=== PATIENT | male | born 1940 | race Caucasian/White ===

== ENCOUNTER → 2017-05-04 | Outpatient (CLI) | payer MEDICARE ==
[~2017-05-04] MED LIST: ASPI81CH PO; ATOR40TA PO; LISI5 PO; METO100ER PO; NITR.6SL SL; XARELTO20 MG PO
[2017-05-04 12:58] LABS: BASOPHILS ABSOLUTE AUTO 0.05 K/mm3 (0.00-0.23); BASOPHILS PERCENT AUTO 1 % (0-2); EOSINOPHILS ABSOLUTE AUTO 0.11 K/mm3 (0.00-0.68); EOSINOPHILS PERCENT AUTO 1 % (0-6); Hematocrit 42.5 % (37.0-53.0); Hemoglobin 14.2 g/dL (13.5-17.5); IMMATURE GRAN ABSOLUTE AUTO 0.02 K/mm3 (0.00-0.10); IMMATURE GRAN PERCENT AUTO 0 % (0-1); LYMPHOCYTES PERCENT AUTO 15 % (21-46); MONOCYTES ABSOLUTE AUTO 1.21 K/mm3 (0.16-1.47); MONOCYTES PERCENT AUTO 12 % (4-13); Mean Corpuscular HGB 32.4 pg (26.0-34.0); Mean Corpuscular HGB Conc 33.4 g/dL (31.5-36.5); Mean Corpuscular Volume 97 fL (80-100); Mean Platelet Volume 9.3 fL (9.1-12.4); NEUTROPHILS ABSOLUTE AUTO 7.19 K/mm3 (1.96-9.15); NEUTROPHILS PERCENT AUTO 71 % (41-73); Platelet Count 154 K/mm3 (150-400); RDW Coefficient Variation 12.2 % (11.7-14.2); RDW Standard Deviation 43.6 fL (35.1-46.3); Red Blood Cell Count 4.38 M/mm3 (4.30-5.90); White Blood Cell Count 10.08 K/mm3 (4.00-11.30)
[2017-05-04 13:12] LABS: Anion Gap 7 mmol/L (6-16); Blood Urea Nitrogen 20 mg/dL (8-24); Bun/Creatinine Ratio 17.9 (12.0-20.0); CO2, Blood 29 mmol/L (21-32); Calcium, Blood 9.4 mg/dL (8.5-10.1); Chloride, Blood 102 mmol/L (98-108); Creatinine, Blood 1.12 mg/dL (0.60-1.20); Glomerular Filtration Rate >60 (60-); Glucose, Blood 102 mg/dL (70-99); Potassium, Blood 4.4 mmol/L (3.5-5.5); Sodium, Blood 138 mmol/L (136-145)
[2017-05-04 13:13] LABS: Troponin I <0.017 ng/mL (0.000-0.040)
== END ==
LOC: LAB 12:55
PROVIDERS: Physician Assistant Surgical
DX: R06.00 Dyspnea, unspecified (principal)
CPT/HCPCS: 80048; 84484; 85025

== ENCOUNTER 2017-05-10 16:26 | Emergency (ER) | payer MEDICARE ==
[~2017-05-10] VITALS: Ht 185.4 cm; Wt 84.1 kg
[~2017-05-10 16:26] MED LIST changes: -XARELTO20 MG PO
[2017-05-10] MEDS ORDERED: XARELTO20 MG PO (17:41)
== END 2017-05-10 17:47 | disposition home or self-care (01) ==
LOC: ER 16:26
DX: I26.99 Other pulmonary embolism without acute cor pulmonale (principal); Z79.82 Long term (current) use of aspirin; Z95.1 Presence of aortocoronary bypass graft
CPT/HCPCS: 71260; 80048; 93005; 93010; 99284; Q9967

== ENCOUNTER → 2017-05-10 | Outpatient (CLI) | payer MEDICARE ==
[2017-05-10 15:10] LABS: Anion Gap 7 mmol/L (6-16); Blood Urea Nitrogen 23 mg/dL (8-24); Bun/Creatinine Ratio 22.1 (12.0-20.0); CO2, Blood 28 mmol/L (21-32); Calcium, Blood 8.9 mg/dL (8.5-10.1); Chloride, Blood 103 mmol/L (98-108); Creatinine, Blood 1.04 mg/dL (0.60-1.20); Glomerular Filtration Rate >60 (60-); Glucose, Blood 100 mg/dL (70-99); Potassium, Blood 4.3 mmol/L (3.5-5.5); Sodium, Blood 138 mmol/L (136-145)
== END ==
LOC: LAB EV 14:59
PROVIDERS: Family Medicine
DX: R07.89 Other chest pain (principal)
CPT/HCPCS: 80048

== ENCOUNTER → 2017-12-09 | Outpatient (CLI) | payer MEDICARE ==
[~2017-12-09] MED LIST changes: +XARELTO20 MG PO
== END | disposition home or self-care (01) ==
LOC: LAB SHORT 18:22 → LAB EV 18:22
DX: L08.9 Local infection of the skin and subcutaneous tissue, unspecified (principal)
CPT/HCPCS: 87070; 87077; 87147; 87186; 87205

== ENCOUNTER → 2018-05-13 | Outpatient (CLI) | payer MEDICARE ==
[2018-05-13 15:24] LABS: BASOPHILS ABSOLUTE AUTO 0.05 K/mm3 (0.00-0.23); BASOPHILS PERCENT AUTO 1 % (0-2); EOSINOPHILS PERCENT AUTO 2 % (0-6); Hematocrit 41.9 % (37.0-53.0); Hemoglobin 14.1 g/dL (13.5-17.5); IMMATURE GRAN ABSOLUTE AUTO 0.02 K/mm3 (0.00-0.10); IMMATURE GRAN PERCENT AUTO 0 % (0-1); LYMPHOCYTES ABSOLUTE AUTO 1.47 K/mm3 (0.84-5.20); LYMPHOCYTES PERCENT AUTO 23 % (21-46); MONOCYTES ABSOLUTE AUTO 0.86 K/mm3 (0.16-1.47); MONOCYTES PERCENT AUTO 14 % (4-13); Mean Corpuscular HGB 32.6 pg (26.0-34.0); Mean Corpuscular HGB Conc 33.7 g/dL (31.5-36.5); Mean Corpuscular Volume 97 fL (80-100); NEUTROPHILS ABSOLUTE AUTO 3.78 K/mm3 (1.96-9.15); NEUTROPHILS PERCENT AUTO 60 % (41-73); Platelet Count 172 K/mm3 (150-400); RDW Coefficient Variation 12.2 % (11.7-14.2); RDW Standard Deviation 43.9 fL (35.1-46.3); Red Blood Cell Count 4.32 M/mm3 (4.30-5.90); White Blood Cell Count 6.28 K/mm3 (4.00-11.30)
[2018-05-13 15:36] LABS: Alanine Aminotransfer (ALT/SGP 16 U/L (12-78); Albumin, Blood 3.4 g/dL (3.4-5.0); Albumin/Globulin Ratio 0.9 (0.8-1.8); Alk Phos 65 U/L (40-126); Anion Gap 7 mmol/L (6-16); Aspartate Aminotrans (AST/SGOT 15 U/L (12-37); Bilirubin, Total 1.1 mg/dL (0.1-1.0); Blood Urea Nitrogen 27 mg/dL (8-24); Bun/Creatinine Ratio 23.7 (12.0-20.0); CO2, Blood 31 mmol/L (21-32); Calcium, Blood 9.3 mg/dL (8.5-10.1); Chloride, Blood 102 mmol/L (98-108); Creatinine, Blood 1.14 mg/dL (0.60-1.20); Globulin, Blood 3.7 g/dL (2.2-4.0); Glomerular Filtration Rate >60 (60-); Glucose, Blood 116 mg/dL (70-99); Potassium, Blood 4.1 mmol/L (3.5-5.5); Sodium, Blood 140 mmol/L (136-145); Total Protein, Blood 7.1 g/dL (6.4-8.2)
== END | disposition home or self-care (01) ==
LOC: LAB EV 15:20 → LAB SHORT 15:20
PROVIDERS: General Practice
DX: M54.5 Low back pain (principal)
CPT/HCPCS: 80053; 85025; 85651

== ENCOUNTER → 2018-10-17 | Outpatient (CLI) | payer MEDICARE | END | disposition home or self-care (01) | LOC: LAB SHORT 07:26 → PLD 07:26 | DX: D23.0 Other benign neoplasm of skin of lip (principal) | CPT/HCPCS: 88305 ==

== ENCOUNTER → 2019-01-24 | Outpatient (CLI) | payer MEDICARE ==
[2019-01-24 20:02] LABS: Adenovirus F 40/41 Not Detected (NOT DETECT); Astrovirus Not Detected (NOT DETECT); Campylobacter Sp Not Detected (NOT DETECT); Cryptosporidium Not Detected (NOT DETECT); Cyclospora Cayetanensis Not Detected (NOT DETECT); E. Coli O157 Not Detected (NOT DETECT); Entamoeba Histolytica Not Detected (NOT DETECT); Enteroaggregative E. coli-EAEC Not Detected (NOT DETECT); Enteropathogenic E. coli-EPEC Not Detected (NOT DETECT); Enterotoxigenic E. coli-ETEC Not Detected (NOT DETECT); Giardia Lamblia Not Detected (NOT DETECT); Norovirus GI/GII Not Detected (NOT DETECT); Plesiomonas Shigelloides Not Detected (NOT DETECT); Rotavirus A Not Detected (NOT DETECT); Salmonella Sp Not Detected (NOT DETECT); Sapovirus Not Detected (NOT DETECT); Shiga Toxin-prod E. coli-STEC Not Detected (NOT DETECT); Shigella/Enteroin E. coli-EIEC Not Detected (NOT DETECT); Vibrio Cholerae Not Detected (NOT DETECT); Vibrio Sp Not Detected (NOT DETECT); Yersinia Enterocolitica Not Detected (NOT DETECT)
== END | disposition home or self-care (01) ==
LOC: LAB EV 07:30
PROVIDERS: Nurse Practitioner
DX: R19.7 Diarrhea, unspecified (principal)
CPT/HCPCS: 0097U; 87324

== ENCOUNTER → 2019-04-11 | Outpatient (CLI) | payer MEDICARE ==
[2019-04-11 22:38] LABS: Adenovirus F 40/41 Not Detected (NOT DETECT); Astrovirus Not Detected (NOT DETECT); Campylobacter Sp Not Detected (NOT DETECT); Cryptosporidium Not Detected (NOT DETECT); Cyclospora Cayetanensis Not Detected (NOT DETECT); E. Coli O157 Not Detected (NOT DETECT); Entamoeba Histolytica Not Detected (NOT DETECT); Enteroaggregative E. coli-EAEC Not Detected (NOT DETECT); Enteropathogenic E. coli-EPEC Not Detected (NOT DETECT); Enterotoxigenic E. coli-ETEC Not Detected (NOT DETECT); Giardia Lamblia Not Detected (NOT DETECT); Norovirus GI/GII Not Detected (NOT DETECT); Plesiomonas Shigelloides Not Detected (NOT DETECT); Rotavirus A Not Detected (NOT DETECT); Salmonella Sp Not Detected (NOT DETECT); Sapovirus Not Detected (NOT DETECT); Shiga Toxin-prod E. coli-STEC Not Detected (NOT DETECT); Shigella/Enteroin E. coli-EIEC Not Detected (NOT DETECT); Vibrio Cholerae Not Detected (NOT DETECT); Vibrio Sp Not Detected (NOT DETECT); Yersinia Enterocolitica Not Detected (NOT DETECT)
== END ==
LOC: LAB SHORT 16:53 → OLS 16:53 → LAB FUT 04-11 12:15
PROVIDERS: Physician Assistant Medical
DX: R19.7 Diarrhea, unspecified (principal)
CPT/HCPCS: 0097U; 87324

== ENCOUNTER 2020-09-01 10:55 | Emergency (ER) | payer MEDICARE ==
[~2020-09-01] VITALS: Ht 182.9 cm; Wt 79.4 kg
== END 2020-09-01 15:40 | disposition home or self-care (01) ==
LOC: ER 10:55
DX: R10.10 Upper abdominal pain, unspecified (principal)
CPT/HCPCS: 99283

== ENCOUNTER 2021-01-24 05:24 | Emergency (ER) | payer MEDICARE ==
[~2021-01-24] VITALS: Ht 182.9 cm; Wt 79.4 kg
[2021-01-24 06:08] LABS: BASOPHILS ABSOLUTE AUTO 0.06 K/mm3 (0.00-0.23); BASOPHILS PERCENT AUTO 1 % (0-2); EOSINOPHILS ABSOLUTE AUTO 0.21 K/mm3 (0.00-0.68); EOSINOPHILS PERCENT AUTO 3 % (0-6); Hematocrit 40.2 % (37.0-53.0); Hemoglobin 13.5 g/dL (13.5-17.5); IMMATURE GRAN ABSOLUTE AUTO 0.02 K/mm3 (0.00-0.10); IMMATURE GRAN PERCENT AUTO 0 % (0-1); LYMPHOCYTES ABSOLUTE AUTO 1.29 K/mm3 (0.84-5.20); LYMPHOCYTES PERCENT AUTO 17 % (21-46); MONOCYTES ABSOLUTE AUTO 0.75 K/mm3 (0.16-1.47); MONOCYTES PERCENT AUTO 10 % (4-13); Mean Corpuscular HGB 33.4 pg (26.0-34.0); Mean Corpuscular HGB Conc 33.6 g/dL (31.5-36.5); Mean Corpuscular Volume 100 fL (80-100); Mean Platelet Volume 9.4 fL (9.1-12.4); NEUTROPHILS ABSOLUTE AUTO 5.17 K/mm3 (1.96-9.15); NEUTROPHILS PERCENT AUTO 69 % (41-73); Platelet Count 189 K/mm3 (150-400); RDW Coefficient Variation 11.9 % (11.7-14.2); RDW Standard Deviation 43.2 fL (35.1-46.3); Red Blood Cell Count 4.04 M/mm3 (4.30-5.90)
[2021-01-24 06:42] LABS: Alanine Aminotransfer (ALT/SGP 50 U/L (12-78); Albumin, Blood 3.4 g/dL (3.4-5.0); Alk Phos 77 U/L (50-136); Anion Gap 5 mmol/L (6-16); Aspartate Aminotrans (AST/SGOT 91 U/L (12-37); Bilirubin, Total 1.1 mg/dL (0.1-1.0); Blood Urea Nitrogen 30 mg/dL (8-24); Bun/Creatinine Ratio 19.6 (12.0-20.0); CO2, Blood 29 mmol/L (21-32); Calcium, Blood 9.2 mg/dL (8.5-10.1); Chloride, Blood 109 mmol/L (98-108); Creatinine, Blood 1.53 mg/dL (0.60-1.20); Globulin, Blood 3.3 g/dL (2.2-4.0); Glomerular Filtration Rate 44 (60-); Glucose, Blood 102 mg/dL (70-99); Potassium, Blood 4.2 mmol/L (3.5-5.5); Sodium, Blood 143 mmol/L (136-145); Total Protein, Blood 6.7 g/dL (6.4-8.2); Troponin I <0.015 ng/mL (0.000-0.040)
== END 2021-01-24 09:08 | disposition home or self-care (01) ==
LOC: ER 05:24
PROVIDERS: Emergency Medicine
DX: R10.13 Epigastric pain (principal)
CPT/HCPCS: 36415; 71045; 80053; 83690; 84484; 85025; 93005; 93010; 99284-25

== ENCOUNTER 2021-04-29 10:17 | Emergency (ER) | payer MEDICARE ==
[~2021-04-29] VITALS: Ht 182.9 cm; Wt 83.9 kg
[~2021-04-29 10:17] MED LIST changes: -ASPI81CH PO; +Aspir 8181 MG PO
[2021-04-29] MEDS ORDERED: XARELTO20 M1 PO (10:59)
[2021-04-29] MEDS ORDERED: FINA5 PO (11:00)
[2021-04-29] MEDS ORDERED: METO50ER PO (11:00)
[2021-04-29] MEDS ORDERED: HYDR1TAB94 PO (12:49)
== END 2021-04-29 12:55 | disposition home or self-care (01) ==
LOC: ER 10:17
DX: S63.501A Unspecified sprain of right wrist, initial encounter (principal); R50.9 Fever, unspecified; W18.30XA Fall on same level, unspecified, initial encounter; Z79.82 Long term (current) use of aspirin; Z79.899 Other long term (current) drug therapy
CPT/HCPCS: 71045; 73110; 99283-25; A9270

== ENCOUNTER 2021-05-04 12:33 | Inpatient (IN) | payer MEDICARE ==
[~2021-05-04] VITALS: Wt 80.3 kg
[2021-05-04 14:53] LABS: Albumin, Blood 2.5 g/dL (3.4-5.0); Albumin/Globulin Ratio 0.7 (0.8-1.8); Bilirubin, Total 0.8 mg/dL (0.1-1.0); Bun/Creatinine Ratio 27.4 (12.0-20.0); C-REACTIVE PROTEIN, EXT RANGE 15.5 mg/dL (0.000-0.300); Calcium, Blood 9.2 mg/dL (8.5-10.1); Creatinine, Blood 3.79 mg/dL (0.60-1.20); Globulin, Blood 3.8 g/dL (2.2-4.0); Potassium, Blood 3.7 mmol/L (3.5-5.5); Total Protein, Blood 6.3 g/dL (6.4-8.2)
--- NOTE | 2021-05-04 15:39 | NUR ---
SHIFT SUMMARY 1300 RECEIVED PT TO 326 DIRECT ADMIT FROM [place]. PT IS A&O AND ABLE TO BE INDEPENDENT IN AND TO BTHR. CALLS FOR ASSIST NEEDED. PT ADMITTED FOR RH CELLULITIS AND SWELLING. LAB TO AFTER ADMISSION TO OBTAIN SET OF BCX'S AND LABS, PER ORDERS. PT BECOMING VERY ANXIOUS AND STIFF, NOT ALLOW LAB TO DRAW AT THAT TIME. LAB LATER RETURNED AFTER BLANKETS AND FOOD GIVEN. PT A LITTLE CALMER AND LAB WAS ABLE TO OBTAIN NEEDED BLOOD. PT UP INDEPENDENTLY TO BTHRM AND THEN BACK TO BED FOR A BREIF NAP. IMAGING NOTIFIED THAT LABS WERE COMPLETE AND PT HAD WORKING IV SITE FOR CT ORDERS. IV ABX GIVEN PER EMAR. PT TALKING TO ON PHONE AND NOW WAITING FOR CT. RH ELEVATED ON PILLOW. PT REPORTS SWELLING DOWN SOME SINCE ADMISSION AND AFTER ELEVATING. CALL LT IN REACH, ABLE TO MAKE NEEDS KNOWN.
[2021-05-04] MEDS ORDERED: FINA5 PO (20:53)
--- NOTE | 2021-05-05 04:37 | NUR ---
SHIFT SUMMARY PT RESTING WELL THIS SHIFT. A/O X4. STAND BY ASSIST TO BATHROOM. PT REPORTING THAT TYLENOL IS HELPING WITH THE PAIN IN HIS R ARM. TOLERATING PO INTAKE. VOIDING AND PASSING STOOL. VITAL SIGNS STABLE. WILL CONTINUE TO MONITOR AND REPORT TO ONCOMING RN.
[2021-05-05 05:44] LABS: BASOPHILS ABSOLUTE AUTO 0.02 K/mm3 (0.00-0.23); BASOPHILS PERCENT AUTO 0 % (0-2); EOSINOPHILS ABSOLUTE AUTO 0.03 K/mm3 (0.00-0.68); EOSINOPHILS PERCENT AUTO 0 % (0-6); Hemoglobin 10.7 g/dL (13.5-17.5); IMMATURE GRAN ABSOLUTE AUTO 0.06 K/mm3 (0.00-0.10); IMMATURE GRAN PERCENT AUTO 1 % (0-1); LYMPHOCYTES ABSOLUTE AUTO 0.98 K/mm3 (0.84-5.20); LYMPHOCYTES PERCENT AUTO 8 % (21-46); MONOCYTES ABSOLUTE AUTO 1.05 K/mm3 (0.16-1.47); MONOCYTES PERCENT AUTO 8 % (4-13); Mean Corpuscular HGB 31.1 pg (26.0-34.0); Mean Corpuscular HGB Conc 33.4 g/dL (31.5-36.5); Mean Corpuscular Volume 93 fL (80-100); NEUTROPHILS ABSOLUTE AUTO 10.76 K/mm3 (1.96-9.15); NEUTROPHILS PERCENT AUTO 83 % (41-73); Platelet Count 274 K/mm3 (150-400); RDW Coefficient Variation 13.1 % (11.7-14.2); RDW Standard Deviation 44.8 fL (35.1-46.3); Red Blood Cell Count 3.44 M/mm3 (4.30-5.90)
[2021-05-05 06:00] LABS: Bun/Creatinine Ratio 27.5 (12.0-20.0); Calcium, Blood 8.4 mg/dL (8.5-10.1); Potassium, Blood 3.4 mmol/L (3.5-5.5)
[2021-05-05 12:38] LABS: Source, Urine Foley catheter
[2021-05-05 12:40] LABS: Bilirubin, Urine Neg (Neg); Blood, Urine 4+ (Neg); Glucose Qualitative, Urine Neg (Neg); Ketones, Urine Neg (Neg); Leukocyte Esterase, Urine Neg (Neg); Nitrite, Urine Neg (Neg); Protein, Urine Neg (Neg); Specific Gravity, Urine 1.015 (1.003-1.022); Urobilinogen, Urine NORM (Normal)
[2021-05-05 12:47] LABS: Appearance, Urine Clear (Clear); Color, Urine Pale Yellow (P-Yellow)
[2021-05-05 12:49] LABS: Bacteria Not Seen /hpf; Mucus Light (0-Heavy); Squamous Epithelial Cells Rare /hpf (Few)
--- NOTE | 2021-05-05 15:06 | NUR ---
SHIFT SUMMARY PT AWAKE AT START OF SHIFT, RESTING QUIETLY AND KEEPING L ARM STRAIGHT FOR IVF INFUSING. R ARM REMAINED ELEVATED ON PILLOW, WHICH IMPROVED SOME FROM LAST NIGHT. SWELLING DECREASED, SHOWING SOME WRINKLED SKIN ON HAND WELL COLOR RETURNED TO FINGERS. YESTERDAY UPON ADMISSION, PT'S FINGERS ON RH WERE WHITE FROM DECREASED CIRCULATION, WITH INTENSE REDNESS TO BACK OF HAND FROM SWELLING. DR GUEVARA TO EARLY TO TALK WITH PT AND DISCUSS PLAN OF CARE. LABS SHOWING ARF D/T URINARY RETENSION. DR GUEVARA RECOMMENDED NOBLE CATH TO BE PLACED AND LEFT IN, UNTIL PT COULD SEE OUTPT UROLOGY. PT AGREED TO NOBLE CATH AND REPORTED URINARY RETENSION HAD GOTTEN WORSE IN RECENT DAYS. IVF'S STOPPED, PT SL AND THEN ABLE TO EAT BREAKFAST W/O IV PUMP OCCLUSSION. PT REQUESTED SHOWER AFTER BREAKFAST AND BEFORE NOBLE PLACEMENT. PT ASSISTED WITH SHOWER BY TUNNEL ELASTIC OPERATOR LOCKSTITCH. LINENS CHANGED WELL. NOBLE CATH PLACED BY MARCELINO STUDENT WITH THIS RN AND INSTRUCTOR AT . PT AGREEABLE TO MARCELINO STUDENT PLACING NOBLE, AND TOLERATED WELL; SIGNIFICANT OUTPT ONCE NOBLE PLACED. PT RESTING QUIETLY AT THIS TIME. DENIES FURTHER NEEDS PRESENTLY. CALL LT IN REACH.
--- NOTE | 2021-05-05 23:38 | NUR ---
SHIFT SUMMARY: PT IS A/OX4. AIDE IS PATENT AND OUTPUT IS ADRIENNE/CLEAR. PT STATES RT ARM/HAND FEELS LESS SWOLLEN. NO ACUTES CHANGES TO REPORT. WE'LL CONTINUE TO MONITOR DURING THE NOC SHIFT.
[2021-05-06 06:43] LABS: BASOPHILS ABSOLUTE AUTO 0.02 K/mm3 (0.00-0.23); BASOPHILS PERCENT AUTO 0 % (0-2); EOSINOPHILS ABSOLUTE AUTO 0.11 K/mm3 (0.00-0.68); EOSINOPHILS PERCENT AUTO 1 % (0-6); Hematocrit 34.2 % (37.0-53.0); Hemoglobin 11.8 g/dL (13.5-17.5); IMMATURE GRAN ABSOLUTE AUTO 0.07 K/mm3 (0.00-0.10); IMMATURE GRAN PERCENT AUTO 1 % (0-1); LYMPHOCYTES ABSOLUTE AUTO 1.16 K/mm3 (0.84-5.20); LYMPHOCYTES PERCENT AUTO 10 % (21-46); MONOCYTES ABSOLUTE AUTO 1.02 K/mm3 (0.16-1.47); MONOCYTES PERCENT AUTO 9 % (4-13); Mean Corpuscular HGB 31.8 pg (26.0-34.0); Mean Corpuscular HGB Conc 34.5 g/dL (31.5-36.5); Mean Corpuscular Volume 92 fL (80-100); Mean Platelet Volume 9.8 fL (9.1-12.4); NEUTROPHILS ABSOLUTE AUTO 9.43 K/mm3 (1.96-9.15); NEUTROPHILS PERCENT AUTO 80 % (41-73); Platelet Count 351 K/mm3 (150-400); RDW Coefficient Variation 13.1 % (11.7-14.2); RDW Standard Deviation 44.2 fL (35.1-46.3); Red Blood Cell Count 3.71 M/mm3 (4.30-5.90); White Blood Cell Count 11.81 K/mm3 (4.00-11.30)
[2021-05-06 07:14] LABS: Anion Gap 10 mmol/L (6-16); Blood Urea Nitrogen 83 mg/dL (8-24); Bun/Creatinine Ratio 34.7 (12.0-20.0); CO2, Blood 22 mmol/L (21-32); Calcium, Blood 8.7 mg/dL (8.5-10.1); Chloride, Blood 106 mmol/L (98-108); Creatinine, Blood 2.39 mg/dL (0.60-1.20); Glomerular Filtration Rate 26 (60-); Glucose, Blood 113 mg/dL (70-99); Phosphorus, Blood 3.9 mg/dL (2.5-4.9); Potassium, Blood 3.5 mmol/L (3.5-5.5); Sodium, Blood 138 mmol/L (136-145)
--- NOTE | 2021-05-06 10:15 | NUR ---
Per Dr. Ramsey, patient needs a close follow-up scheduled with [facility]. I called this morning and scheduled the patient for a stat office visit on Thursday, May 13, 2021 at 09:30am at the [place] location.
--- NOTE | 2021-05-06 16:54 | NUR ---
Pt. was alert in bed and wlecomed my visit. After establishing rapport pt. was initially unsettled by the care he received in ED, but verbalized the excellent care he was receiving in the Medical floor. Listened empathetically. Pt. displayed evidence of needing conversation. Explored issues of orestes and belief. Prayed with Pt. Pt. displayed evidence of encouragement and verbalized gratitude for the spiritual care visit.
--- NOTE | 2021-05-06 18:29 | NUR ---
SHIFT SUMMARY- PT HAS HAD NO ACUTE CHANGES T/O THE SHIFT, HE WORKED WITH PT AND OT TODAY. PT HAD A FULL SHOWER. RIGHT HAND IS STILL SWOLLEN BUT APPEARS TO BE IMPROVED, PAIN IS WELL MANAGED WITH TYLENOL. PT CONVEYED THE CONCERN THAT HE MAY BECOME CONSTIPATED, THIS IS APPARENTLY A COMMON PROBLEM FOR HIM AT HOME. PT REQUESTED SOME BOWEL CARE MEDICATIONS HE HAS NOT HAD A BM SINCE TUESDAY. WILL PASS ON TO NIGHT RN SO SHE CAN PASS THE REQUEST ON TO THE DAY SHIFT RN TO REQUEST ON NEXT DOCTOR ROUNDS. PLACED A NOTE ON PT DRY ERASE BOARD IN PT ROOM PER PT REQUEST.
--- NOTE | 2021-05-07 03:33 | NUR ---
PT IS A/OX4. HIS IS ON RA W/ NO TELE. HIS NOBLE CATHETER IS PATENT/OUTPUT IS YELLOW AND CLEAR. HE WILL BE DISCHARGING W/ THE NOBLE AND F/U AN OUTPATIENT. HIS RT HAND/FOREARM IS SWOLLEN, RED, AND WARM TO TOUCH. THE 650 MG TYLENOL DECREASES THE PT'S PAIN VERY WELL. NO OTHER C/O THIS NOC SHIFT.
[2021-05-07 05:06] LABS: BASOPHILS ABSOLUTE AUTO 0.03 K/mm3 (0.00-0.23); BASOPHILS PERCENT AUTO 0 % (0-2); EOSINOPHILS ABSOLUTE AUTO 0.15 K/mm3 (0.00-0.68); EOSINOPHILS PERCENT AUTO 1 % (0-6); Hematocrit 33.6 % (37.0-53.0); Hemoglobin 11.2 g/dL (13.5-17.5); IMMATURE GRAN ABSOLUTE AUTO 0.09 K/mm3 (0.00-0.10); IMMATURE GRAN PERCENT AUTO 1 % (0-1); LYMPHOCYTES ABSOLUTE AUTO 1.16 K/mm3 (0.84-5.20); LYMPHOCYTES PERCENT AUTO 11 % (21-46); MONOCYTES ABSOLUTE AUTO 0.96 K/mm3 (0.16-1.47); MONOCYTES PERCENT AUTO 9 % (4-13); Mean Corpuscular HGB 31.4 pg (26.0-34.0); Mean Corpuscular HGB Conc 33.3 g/dL (31.5-36.5); Mean Corpuscular Volume 94 fL (80-100); Mean Platelet Volume 9.7 fL (9.1-12.4); NEUTROPHILS ABSOLUTE AUTO 8.09 K/mm3 (1.96-9.15); NEUTROPHILS PERCENT AUTO 77 % (41-73); Platelet Count 351 K/mm3 (150-400); RDW Coefficient Variation 13.1 % (11.7-14.2); RDW Standard Deviation 45.1 fL (35.1-46.3); Red Blood Cell Count 3.57 M/mm3 (4.30-5.90); White Blood Cell Count 10.48 K/mm3 (4.00-11.30)
[2021-05-07 05:29] LABS: Anion Gap 7 mmol/L (6-16); Blood Urea Nitrogen 61 mg/dL (8-24); Bun/Creatinine Ratio 36.5 (12.0-20.0); CO2, Blood 25 mmol/L (21-32); Calcium, Blood 8.6 mg/dL (8.5-10.1); Chloride, Blood 106 mmol/L (98-108); Creatinine, Blood 1.67 mg/dL (0.60-1.20); Glomerular Filtration Rate 40 (60-); Glucose, Blood 108 mg/dL (70-99); Phosphorus, Blood 2.9 mg/dL (2.5-4.9); Potassium, Blood 3.9 mmol/L (3.5-5.5); Sodium, Blood 138 mmol/L (136-145)
[2021-05-07] MEDS ORDERED: CEPH500 PO (10:17)
--- NOTE | 2021-05-07 10:21 | NUR ---
Yesterday I went to visit the patient in his room. He was sitting up in bed, alert and pleasant. He requested I call his , and we both spoke to her to discuss the discharge plan for today. I also asked him for his daughter, Macey, cell phone number [phone]. I called and discussed the discharge plan for today. I also let her know of the appointment with his PCP scheduled for Tuesday at 12:00 and the appointment with [facility] in [place] scheduled for Tuesday at 09:30am. She states she plans to help with discharge transportation and transportation to his appointment on Tuesday. Patient has several friends that would be able to provide transportation to the [place] appointment. I went to visit the patient this morning to ask his preference on home health services, he chose [facility]. I have contacted Liz Patino with [facility] to refer the patient for those services. Consulted with patient's nurse, Ashlie, on discharge plan. All agreeable and deny barriers to returning home.
--- NOTE | 2021-05-07 12:57 | NUR ---
DISCHARGE SUMMARY: PRIOR TO DISCHARGE PT WAS EDUCATED ON MAINTANCE OF NOBLE CATHETER AND NEW ANTIBIOTIC MEDICATION. PATIENT VU AND PROVIDED RETURNED DEMONSTRATION. ASSISTED PATIENT WITH GETTING DRESSED AND PACKING UP BELONGINGS. PT ESCORTED TO POV BY THIS STUDENT RN. PICKED UP BY FAMILY MEMBER.
--- NOTE | 2021-05-08 10:17 | NUR ---
Received referral from [facility] (Sudha Beebe) on 05/07/2021. Patient discharged 05/07/2021 with orders for home health and elected [facility]. Contacted patient at home this morning- 05/08/2021 at number listed on demographic sheet to further discuss the above. Patient is agreeable to the above. Discussed homebound status definition with patient. Patient verbalized understanding. Discussed what home health is vs what it is not (in home caregivers/housekeeping). Patient verbalized understanding. Discussed the next steps in the process of an initial assessment to determine frequency of visits. Again patient verbalized understanding. Offered a chance for patient to ask questions regarding the above of which there were none. Gathered all supporting documentation for referral (face sheet, face to face, med list, H&P, discharge summary, and most recent PT assessment) and sent to [facility] for review. No further interventions required. Liz Patino Referral Liaison
== END 2021-05-07 12:22 | disposition home health service (06) | DRG 603 ==
LOC: MEDS 12:36
PROVIDERS: ADMIT Family Medicine
DX: L03.113 Cellulitis of right upper limb (principal); N17.9 Acute kidney failure, unspecified; D68.59 Other primary thrombophilia; R78.81 Bacteremia; I50.32 Chronic diastolic (congestive) heart failure; N40.0 Benign prostatic hyperplasia without lower urinary tract symptoms; I25.10 Atherosclerotic heart disease of native coronary artery without angina pectoris; I27.20 Pulmonary hypertension, unspecified; Z86.711 Personal history of pulmonary embolism; Z86.718 Personal history of other venous thrombosis and embolism; Z95.1 Presence of aortocoronary bypass graft; Z98.890 Other specified postprocedural states; Z79.899 Other long term (current) drug therapy; Z79.82 Long term (current) use of aspirin; N18.9 Chronic kidney disease, unspecified; B95.5 Unspecified streptococcus as the cause of diseases classified elsewhere
CPT/HCPCS: 36415; 73200; 76770; 80048; 80053; 80069; 81001; 84145; 85025; 85651; 86140; 87040; 87147; 97110; 97161; 97166; 97530; A9270; J0690; J7030

== ENCOUNTER → 2021-05-04 | Outpatient (CLI) | payer MEDICARE ==
[~2021-05-04] MED LIST changes: +FINA5 PO; +HYDR1TAB94 PO; +METO50ER PO; +XARELTO20 M1 PO
[2021-05-04 08:45] LABS: BASOPHILS ABSOLUTE AUTO 0.02 K/mm3 (0.00-0.23); BASOPHILS PERCENT AUTO 0 % (0-2); EOSINOPHILS ABSOLUTE AUTO 0.01 K/mm3 (0.00-0.68); EOSINOPHILS PERCENT AUTO 0 % (0-6); Hematocrit 35.1 % (37.0-53.0); Hemoglobin 12.1 g/dL (13.5-17.5); IMMATURE GRAN ABSOLUTE AUTO 0.05 K/mm3 (0.00-0.10); IMMATURE GRAN PERCENT AUTO 0 % (0-1); LYMPHOCYTES ABSOLUTE AUTO 0.69 K/mm3 (0.84-5.20); LYMPHOCYTES PERCENT AUTO 5 % (21-46); MONOCYTES ABSOLUTE AUTO 1.09 K/mm3 (0.16-1.47); MONOCYTES PERCENT AUTO 8 % (4-13); Mean Corpuscular HGB 32.4 pg (26.0-34.0); Mean Corpuscular HGB Conc 34.5 g/dL (31.5-36.5); Mean Corpuscular Volume 94 fL (80-100); NEUTROPHILS ABSOLUTE AUTO 11.89 K/mm3 (1.96-9.15); NEUTROPHILS PERCENT AUTO 87 % (41-73); Platelet Count 294 K/mm3 (150-400); RDW Coefficient Variation 13.2 % (11.7-14.2); RDW Standard Deviation 45.3 fL (35.1-46.3); Red Blood Cell Count 3.74 M/mm3 (4.30-5.90); White Blood Cell Count 13.75 K/mm3 (4.00-11.30)
== END | disposition home or self-care (01) ==
LOC: LAB SHORT 08:40 → LAB 08:40
PROVIDERS: Physician Assistant
DX: R22.31 Localized swelling, mass and lump, right upper limb (principal)
CPT/HCPCS: 84550; 85025; 85651

== ENCOUNTER 2021-06-01 14:19 | Emergency (ER) | payer MEDICARE ==
[~2021-06-01] VITALS: Ht 182.9 cm; Wt 74.8 kg
[~2021-06-01 14:19] MED LIST changes: +CEPH500 PO
[2021-06-01] MEDS ORDERED: TRAM50 PO (17:04)
[2021-06-01] MEDS ORDERED: CEPH500 PO (17:17)
[2021-06-01] MEDS ORDERED: Bactrim Ds Tab1 EACH PO (17:17)
== END 2021-06-01 17:25 | disposition home or self-care (01) ==
LOC: ER 14:19 → CT 14:19 → EDSTATUS 15:00 → CT 15:00 → ER 17:25
DX: L03.113 Cellulitis of right upper limb (principal); I10 Essential (primary) hypertension; Z79.899 Other long term (current) drug therapy
CPT/HCPCS: 73201; 99283-25; A9270; Q9967

== ENCOUNTER 2021-10-11 12:48 | Inpatient (IN) | payer MEDICARE ==
[~2021-10-11] VITALS: Ht 182.9 cm; Wt 77.6 kg
[~2021-10-11 12:48] MED LIST changes: +Bactrim Ds Tab1 EACH PO; +TRAM50 PO
[2021-10-11 20:32] LABS: BASOPHILS ABSOLUTE AUTO 0.04 K/mm3 (0.00-0.23); BASOPHILS PERCENT AUTO 0 % (0-2); EOSINOPHILS PERCENT AUTO 0 % (0-6); Hematocrit 38.8 % (37.0-53.0); Hemoglobin 13.3 g/dL (13.5-17.5); IMMATURE GRAN ABSOLUTE AUTO 0.03 K/mm3 (0.00-0.10); IMMATURE GRAN PERCENT AUTO 0 % (0-1); LYMPHOCYTES ABSOLUTE AUTO 0.87 K/mm3 (0.84-5.20); LYMPHOCYTES PERCENT AUTO 7 % (21-46); MONOCYTES ABSOLUTE AUTO 0.86 K/mm3 (0.16-1.47); MONOCYTES PERCENT AUTO 6 % (4-13); Mean Corpuscular HGB 32.3 pg (26.0-34.0); Mean Corpuscular HGB Conc 34.3 g/dL (31.5-36.5); Mean Corpuscular Volume 94 fL (80-100); NEUTROPHILS ABSOLUTE AUTO 11.55 K/mm3 (1.96-9.15); NEUTROPHILS PERCENT AUTO 87 % (41-73); Platelet Count 200 K/mm3 (150-400); RDW Standard Deviation 41.7 fL (35.1-46.3); Red Blood Cell Count 4.12 M/mm3 (4.30-5.90); White Blood Cell Count 13.35 K/mm3 (4.00-11.30)
[2021-10-11 20:47] LABS: International Normalized Ratio 1.07; Prothrombin Time Results 11.2 Sec (9.7-11.5)
[2021-10-11 20:53] LABS: Albumin, Blood 3.4 g/dL (3.4-5.0); Albumin/Globulin Ratio 1.2 (0.8-1.8); Bilirubin, Total 1.5 mg/dL (0.1-1.0); Bun/Creatinine Ratio 21.5 (12.0-20.0); Creatinine, Blood 1.21 mg/dL (0.60-1.20); Globulin, Blood 2.9 g/dL (2.2-4.0); Magnesium, Blood 2.1 mg/dL (1.6-2.4); Phosphorus, Blood 3.3 mg/dL (2.5-4.9); Potassium, Blood 4.1 mmol/L (3.5-5.5); Total Protein, Blood 6.3 g/dL (6.4-8.2)
[2021-10-11 22:41] LABS: SARS-Cov-2 (COVID-19) PCR, MMC NEGATIVE (NEGATIVE)
--- NOTE | 2021-10-12 08:07 | NUR ---
ASSUMED CARE OF PT AT 0030. PT WITH HIP FX.L WITH SOME EXTERNAL ROTATION.ON THINNERS BASELINE AND HAS NOT BEEN 24 SINCE LAST DOSE.PT HAS CHRONIC INDWELLING NOBLE WHICH REPORTED PT REFUSING REPLACED. PT ALLOWED ER TO REPLACE DRNG BAG.PT REFUSING FENTANYL.STATES DID NOT LIKE THE WAY IT MADE HIM FEEL.PT TAKING TYLENOL FOR PAIN.
--- NOTE | 2021-10-12 10:35 | NUR ---
PATIENT TO DAY SURGERY VIA BED WITH 2 STAFF
--- NOTE | 2021-10-12 15:15 | NUR ---
PATIENT RETURNED TO ROOM FROM PACU, IN BED. VSS, ON 2L O2 VIA NC. LUNGS CLEAR. BULKY DRESSING IN PLACE TO LEFT HIP, C/D/I. PPOLAR PACK IN PLACE. PATIENT ABLE TO WIGLLE TOES AND HAS FULL SENSATION TO BLE. DENIES PAIN. TELE PLACED AND CONFIRED W/ ROD MILL TENDER JR STEEN @ 73. TOLERATING WATER AND JELLO AT THIS TIME. CALL LIGHT IN REACH.
--- NOTE | 2021-10-12 19:04 | NUR ---
SHIFT SUMMARY NO ACUTE CHANGES SINCE ARRIVAL. VSS, ON 1L O2 VIA NC. TOLERATING REGULAR PO DIET. NOBLE CATH REMAINS IN PLACE - CHRONIC. PATIENT DENIES PAIN. CALLS APPROPRIATELY. WILL REPORT TO ONCOMING RN.
--- NOTE | 2021-10-13 04:05 | NUR ---
SHIFT SUMMARY NO ACUTE CHANGES. PT RESTED WELL. LEFT HIP DRESSING REMAINS CDI. TYLENOL/TORADOL FOR PAIN MANAGEMENT. UP WITH 1-2 SBA USING FWW + GB TO BSC. CHRONIC NOBLE IN PLACE DRAINING CLEAR YELLOW URINE. TIAGO PO. IV SL. USES CALL LIGHT APPROPRIATELY.
[2021-10-13 05:26] LABS: BASOPHILS ABSOLUTE AUTO 0.02 K/mm3 (0.00-0.23); BASOPHILS PERCENT AUTO 0 % (0-2); EOSINOPHILS ABSOLUTE AUTO 0.06 K/mm3 (0.00-0.68); EOSINOPHILS PERCENT AUTO 0 % (0-6); Hematocrit 33.2 % (37.0-53.0); Hemoglobin 11.3 g/dL (13.5-17.5); IMMATURE GRAN ABSOLUTE AUTO 0.05 K/mm3 (0.00-0.10); IMMATURE GRAN PERCENT AUTO 0 % (0-1); LYMPHOCYTES ABSOLUTE AUTO 1.02 K/mm3 (0.84-5.20); LYMPHOCYTES PERCENT AUTO 7 % (21-46); MONOCYTES ABSOLUTE AUTO 1.25 K/mm3 (0.16-1.47); MONOCYTES PERCENT AUTO 9 % (4-13); Mean Corpuscular Volume 97 fL (80-100); Mean Platelet Volume 9.3 fL (9.1-12.4); NEUTROPHILS ABSOLUTE AUTO 11.49 K/mm3 (1.96-9.15); NEUTROPHILS PERCENT AUTO 83 % (41-73); Platelet Count 146 K/mm3 (150-400); RDW Coefficient Variation 12.1 % (11.7-14.2); RDW Standard Deviation 43.1 fL (35.1-46.3); Red Blood Cell Count 3.42 M/mm3 (4.30-5.90); White Blood Cell Count 13.89 K/mm3 (4.00-11.30)
[2021-10-13 05:52] LABS: Bun/Creatinine Ratio 24.4 (12.0-20.0); Calcium, Blood 8.3 mg/dL (8.5-10.1); Creatinine, Blood 1.6 mg/dL (0.60-1.20); Magnesium, Blood 2.4 mg/dL (1.6-2.4); Potassium, Blood 4.2 mmol/L (3.5-5.5)
--- NOTE | 2021-10-13 07:00 | NUR ---
ASSUMED CARE OF PATIENT. BEDSIDE REPORT RECIEVED FROM AMY PENALOZA. PATIENT RESTING IN BED, APPEARS TO BE SLEEPING. CALL LIGHT IN REACH.
--- NOTE | 2021-10-13 17:07 | NUR ---
SHIFT SUMMARY POD 1 L PAVITHRA, X2 AQUACEL DRESSINGS TO LEFT HIP, C/D/I. AMBULATED TO BR AND HALLWAY WITH PT, TOLERATED WELL. PAIN MANAGED WITH TYLENOL PER EMAR, PATIENT REPORTS NO PAIN. EATING & DRINKING WELL. NOBLE CATH REMAINS IN PLACE, DRAINING CLEAR YELLOW URINE. CALLS APPROPRIATELY, WILL REPORT TO ONCOMING RN.
[2021-10-14 10:26] LABS: BASOPHILS ABSOLUTE AUTO 0.03 K/mm3 (0.00-0.23); BASOPHILS PERCENT AUTO 0 % (0-2); EOSINOPHILS ABSOLUTE AUTO 0.22 K/mm3 (0.00-0.68); EOSINOPHILS PERCENT AUTO 2 % (0-6); Hematocrit 34.5 % (37.0-53.0); Hemoglobin 11.6 g/dL (13.5-17.5); IMMATURE GRAN ABSOLUTE AUTO 0.03 K/mm3 (0.00-0.10); IMMATURE GRAN PERCENT AUTO 0 % (0-1); LYMPHOCYTES ABSOLUTE AUTO 0.93 K/mm3 (0.84-5.20); LYMPHOCYTES PERCENT AUTO 10 % (21-46); MONOCYTES ABSOLUTE AUTO 0.91 K/mm3 (0.16-1.47); MONOCYTES PERCENT AUTO 10 % (4-13); Mean Corpuscular HGB 32.8 pg (26.0-34.0); Mean Corpuscular HGB Conc 33.6 g/dL (31.5-36.5); Mean Corpuscular Volume 98 fL (80-100); Mean Platelet Volume 9.7 fL (9.1-12.4); NEUTROPHILS ABSOLUTE AUTO 7.41 K/mm3 (1.96-9.15); NEUTROPHILS PERCENT AUTO 78 % (41-73); Platelet Count 161 K/mm3 (150-400); RDW Coefficient Variation 12.1 % (11.7-14.2); RDW Standard Deviation 43.6 fL (35.1-46.3); Red Blood Cell Count 3.54 M/mm3 (4.30-5.90); White Blood Cell Count 9.53 K/mm3 (4.00-11.30)
[2021-10-14 11:14] LABS: Bun/Creatinine Ratio 28.4 (12.0-20.0); Calcium, Blood 8.8 mg/dL (8.5-10.1); Creatinine, Blood 1.48 mg/dL (0.60-1.20); Potassium, Blood 4.1 mmol/L (3.5-5.5)
--- NOTE | 2021-10-14 12:22 | NUR ---
DR NICHOLE IN TO SEE PT.
[2021-10-14] MEDS ORDERED: SULTRIDS PO (15:24)
[2021-10-14] MEDS ORDERED: ACET325 PO (15:25)
--- NOTE | 2021-10-14 16:36 | NUR ---
DISCHARGED DRESSINGS TO L HIP CDI. PROVIDED DRESSINGS. REVIEWED DC PAPERWORK; PT VERBALIZED UNDERSTANDING. PT'S FAMILY MEMBER AT BEDSIDE. PT LEAVING UNIT W/POSSESSIONS, AQUACEL DRESSINGS, POLAR PACK AND DC INSTRUCTIONS IN HAND IN WC TO RIDE WAITING OUTSIDE.
== END 2021-10-14 16:43 | disposition home health service (06) | DRG 522 ==
LOC: ER 12:48 → SURS 14:56 → ERHOLD 14:56 → SURS 20:42 → ERHOLD 20:42 → SURS 10-13 10:58 → ERHOLD 10-13 10:58 → SURS 10-14 16:43
PROVIDERS: Internal Medicine; Orthopaedic Surgery; ADMIT Hospitalist
PROC: 0SRB0JA Replacement of Left Hip Joint with Synthetic Substitute, Uncemented, Open Approach (ICD-10-PCS; principal; 2021-10-13)
DX: S72.002A Fracture of unspecified part of neck of left femur, initial encounter for closed fracture (principal); N17.9 Acute kidney failure, unspecified; Z20.822 Contact with and (suspected) exposure to COVID-19; R79.1 Abnormal coagulation profile; M16.12 Unilateral primary osteoarthritis, left hip; N18.30 Chronic kidney disease, stage 3 unspecified; N40.0 Benign prostatic hyperplasia without lower urinary tract symptoms; H52.209 Unspecified astigmatism, unspecified eye; I12.9 Hypertensive chronic kidney disease with stage 1 through stage 4 chronic kidney disease, or unspecified chronic kidney disease; G62.9 Polyneuropathy, unspecified; I25.10 Atherosclerotic heart disease of native coronary artery without angina pectoris; Z95.5 Presence of coronary angioplasty implant and graft; Z98.890 Other specified postprocedural states; Z79.82 Long term (current) use of aspirin; Z98.49 Cataract extraction status, unspecified eye; Z79.899 Other long term (current) drug therapy; Z96.0 Presence of urogenital implants; Z90.89 Acquired absence of other organs; Z79.01 Long term (current) use of anticoagulants; Z86.718 Personal history of other venous thrombosis and embolism; Z95.1 Presence of aortocoronary bypass graft; Z86.711 Personal history of pulmonary embolism; W18.39XA Other fall on same level, initial encounter
CPT/HCPCS: 36415; 72170; 73502; 80048; 80053; 83735; 84100; 85025; 85610; 93005; 93010; 97110; 97116; 97162; 97166; 97530; 97535; 99285-25; A9270; C1713; C1776; J0171; J0690; J0735; J1100; J1885; J2370; J2405; J2704; J2795; J3010; J3370; J7060; J7120; U0004

== ENCOUNTER 2021-11-23 12:25 | Emergency (ER) | payer MEDICARE ==
[~2021-11-23] VITALS: Ht 180.3 cm; Wt 78.0 kg
[~2021-11-23 12:25] MED LIST changes: +ACET325 PO; +SULTRIDS PO
[2021-11-23] MEDS ORDERED: XARELTO20 M1 PO (12:42)
== END 2021-11-23 12:45 | disposition home or self-care (01) ==
LOC: ER 12:25
DX: Z76.0 Encounter for issue of repeat prescription (principal); Z79.899 Other long term (current) drug therapy; Z79.82 Long term (current) use of aspirin; I10 Essential (primary) hypertension
CPT/HCPCS: 99281

== ENCOUNTER → 2022-03-19 | Outpatient (CLI) | payer MEDICARE ==
[2022-03-19 10:08] LABS: BASOPHILS ABSOLUTE AUTO 0.06 K/mm3 (0.00-0.23); BASOPHILS PERCENT AUTO 1 % (0-2); EOSINOPHILS ABSOLUTE AUTO 0.19 K/mm3 (0.00-0.68); EOSINOPHILS PERCENT AUTO 3 % (0-6); Hematocrit 41.4 % (37.0-53.0); Hemoglobin 13.9 g/dL (13.5-17.5); IMMATURE GRAN ABSOLUTE AUTO 0.02 K/mm3 (0.00-0.10); IMMATURE GRAN PERCENT AUTO 0 % (0-1); LYMPHOCYTES ABSOLUTE AUTO 1.36 K/mm3 (0.84-5.20); LYMPHOCYTES PERCENT AUTO 19 % (21-46); MONOCYTES ABSOLUTE AUTO 0.86 K/mm3 (0.16-1.47); MONOCYTES PERCENT AUTO 12 % (4-13); Mean Corpuscular HGB 32.1 pg (26.0-34.0); Mean Corpuscular HGB Conc 33.6 g/dL (31.5-36.5); Mean Corpuscular Volume 96 fL (80-100); Mean Platelet Volume 9.2 fL (9.1-12.4); NEUTROPHILS ABSOLUTE AUTO 4.86 K/mm3 (1.96-9.15); NEUTROPHILS PERCENT AUTO 66 % (41-73); Platelet Count 184 K/mm3 (150-400); RDW Coefficient Variation 13.2 % (11.7-14.2); RDW Standard Deviation 47.1 fL (35.1-46.3); Red Blood Cell Count 4.33 M/mm3 (4.30-5.90); White Blood Cell Count 7.35 K/mm3 (4.00-11.30)
[2022-03-19 10:19] LABS: Albumin, Blood 3.6 g/dL (3.4-5.0); Albumin/Globulin Ratio 1.2 (0.8-1.8); Bilirubin, Total 1.1 mg/dL (0.1-1.0); Bun/Creatinine Ratio 18.4 (12.0-20.0); Creatinine, Blood 1.36 mg/dL (0.60-1.20); Potassium, Blood 4.6 mmol/L (3.5-5.5); Total Protein, Blood 6.6 g/dL (6.4-8.2)
== END | disposition home or self-care (01) ==
LOC: LAB SHORT 10:00
PROVIDERS: Emergency Medicine
DX: R31.9 Hematuria, unspecified (principal)
CPT/HCPCS: 80053; 85025

== ENCOUNTER → 2022-03-19 | Outpatient (CLI) | payer MEDICARE | END | disposition home or self-care (01) | LOC: LAB SHORT 11:25 | DX: N39.0 Urinary tract infection, site not specified (principal); R30.0 Dysuria | CPT/HCPCS: 87077; 87086; 87186 ==

== ENCOUNTER → 2022-03-30 | Outpatient (CLI) | payer MEDICARE | END | disposition home or self-care (01) | LOC: LAB SHORT 10:15 | DX: N39.0 Urinary tract infection, site not specified (principal) | CPT/HCPCS: 87086; 87106 ==

== ENCOUNTER → 2023-04-26 | Outpatient (CLI) | payer MEDICARE ==
[2023-04-26 15:41] LABS: Adenovirus F 40/41 Not Detected (NOT DETECT); Astrovirus Not Detected (NOT DETECT); Campylobacter Sp Not Detected (NOT DETECT); Cryptosporidium Not Detected (NOT DETECT); Cyclospora Cayetanensis Not Detected (NOT DETECT); E. Coli O157 Not Detected (NOT DETECT); Entamoeba Histolytica Not Detected (NOT DETECT); Enteroaggregative E. coli-EAEC Not Detected (NOT DETECT); Enteropathogenic E. coli-EPEC Not Detected (NOT DETECT); Enterotoxigenic E. coli-ETEC Not Detected (NOT DETECT); Giardia Lamblia Not Detected (NOT DETECT); Norovirus GI/GII Not Detected (NOT DETECT); Plesiomonas Shigelloides Not Detected (NOT DETECT); Rotavirus A Not Detected (NOT DETECT); Salmonella Sp Not Detected (NOT DETECT); Sapovirus Not Detected (NOT DETECT); Shiga Toxin-prod E. coli-STEC Not Detected (NOT DETECT); Shigella/Enteroin E. coli-EIEC Not Detected (NOT DETECT); Vibrio Cholerae Not Detected (NOT DETECT); Vibrio Sp Not Detected (NOT DETECT); Yersinia Enterocolitica Not Detected (NOT DETECT)
== END | disposition home or self-care (01) ==
LOC: LAB 13:13 → LAB SHORT 13:13
PROVIDERS: Physician Assistant Medical
DX: R19.7 Diarrhea, unspecified (principal)
CPT/HCPCS: 87507

== ENCOUNTER → 2023-09-03 | Outpatient (CLI) | payer MEDICARE ==
[2023-09-03 15:41] LABS: BASOPHILS ABSOLUTE AUTO 0.06 K/mm3 (0.00-0.23); BASOPHILS PERCENT AUTO 1 % (0-2); EOSINOPHILS PERCENT AUTO 3 % (0-6); Hematocrit 40.6 % (37.0-53.0); Hemoglobin 13.5 g/dL (13.5-17.5); IMMATURE GRAN ABSOLUTE AUTO 0.02 K/mm3 (0.00-0.10); IMMATURE GRAN PERCENT AUTO 0 % (0-1); LYMPHOCYTES ABSOLUTE AUTO 1.21 K/mm3 (0.84-5.20); LYMPHOCYTES PERCENT AUTO 16 % (21-46); MONOCYTES ABSOLUTE AUTO 0.87 K/mm3 (0.16-1.47); MONOCYTES PERCENT AUTO 11 % (4-13); Mean Corpuscular HGB 33.2 pg (26.0-34.0); Mean Corpuscular HGB Conc 33.3 g/dL (31.5-36.5); Mean Corpuscular Volume 100 fL (80-100); Mean Platelet Volume 9.4 fL (9.1-12.4); NEUTROPHILS ABSOLUTE AUTO 5.42 K/mm3 (1.96-9.15); NEUTROPHILS PERCENT AUTO 70 % (41-73); Platelet Count 214 K/mm3 (150-400); RDW Coefficient Variation 13.2 % (11.7-14.2); RDW Standard Deviation 47.8 fL (35.1-46.3); Red Blood Cell Count 4.07 M/mm3 (4.30-5.90); White Blood Cell Count 7.78 K/mm3 (4.00-11.30)
[2023-09-03 15:55] LABS: Albumin, Blood 3.5 g/dL (3.4-5.0); Bilirubin, Total 1.1 mg/dL (0.1-1.0); Bun/Creatinine Ratio 24.6 (12.0-20.0); Calcium, Blood 9.5 mg/dL (8.5-10.1); Creatinine, Blood 1.3 mg/dL (0.60-1.20); Globulin, Blood 3.4 g/dL (2.2-4.0); Potassium, Blood 4.6 mmol/L (3.5-5.5); Total Protein, Blood 6.9 g/dL (6.4-8.2)
== END ==
LOC: LAB SHORT 15:35 → LAB 15:35
PROVIDERS: Emergency Medicine
DX: M79.89 Other specified soft tissue disorders (principal)
CPT/HCPCS: 80053; 85025; 85651; 86140; 87040

== ENCOUNTER 2024-01-17 09:49 | Day surgery (SDC) | payer MEDICARE ==
[~2024-01-17] VITALS: Ht 182.9 cm; Wt 81.6 kg
[2024-01-17] VITALS (9 sets, daily range): BP systolic 138–172; BP diastolic 76–94
[2024-01-17] MEDS ORDERED: Verapamil HCL 2.5 MG/ML 2ML Injection ONE (10:13)
[2024-01-17] MEDS ORDERED: NS 1,000 ML IV ONE ×2 (10:13→10:52)
[2024-01-17] MEDS ORDERED: Heparin Sodium 1000 Units/ML 10ML MDV ONE (10:13)
[2024-01-17] MEDS ORDERED: NS 250 ML IV ONE (10:13)
[2024-01-17] MEDS ORDERED: Midazolam HCl 1MG / ML 2ML Vial ONE (10:52)
[2024-01-17] MEDS ORDERED: FentaNYL Citrate 50 MCG/ML 2 ML Injection ONE (10:52)
--- NOTE | 2024-01-17 12:00 | NUR ---
PATIENT ARRIVED BACK TO RECOVERY ROOM SITTING UPRIGHT IN RECLINER. L RADIAL TR BAND SITE FULLY INFLATED. VSS ON RA. PATIENT CONVERSING APPROPRIATELY. PATIENT DENYING ANY CP.
--- NOTE | 2024-01-17 12:30 | NUR ---
PATIENT SITTING UPRIGHT IN RECLINER, FAMILY PRESENT AT BEDSIDE. PATIENT TOLERATING PO INTAKE WELL
--- NOTE | 2024-01-17 12:56 | NUR ---
PT GIVEN LUNCH TRAY, TR BAND ON L WRIST IN PLACED, NO HEMATOMA
--- NOTE | 2024-01-17 13:05 | NUR ---
INITIAL 2 CC OF AIR REMOVED FROM L RADIAL TR BAND. SITE C/D/I SOFT/NONTENDER, NO EVIDENCE OF BLEEDING. VSS ON RA
--- NOTE | 2024-01-17 13:23 | NUR ---
ALL AIR REMOVED FROM L RADIAL TR BAND. SITE C/D/I SOFT/NONTENDER, NO EVIDENCE OF BLEEDING. VSS ON RA. PATIENT DENYING ANY PAIN. PATIENT TOLERATING PO INTAKE WELL
--- NOTE | 2024-01-17 13:25 | NUR ---
TR BAND FULLY DEFLATED.
--- NOTE | 2024-01-17 14:14 | NUR ---
PT GETTING DRESSED.
--- NOTE | 2024-01-17 14:14 | NUR ---
600 ML REMOVED FROM NOBLE CATHETER.URINE CLEAR AND YELLOW
--- NOTE | 2024-01-17 14:41 | NUR ---
IV D/C CATHETER INTACT. PT VERBALIZE D/C INSTRUCTIONS. TR BAND REMOVED AND CLOTH DOT PLACED.PT WHEELED OUT OF DEPT.
== END 2024-01-17 14:30 | disposition home or self-care (01) ==
LOC: MHTC 09:49
DX: I25.718 Atherosclerosis of autologous vein coronary artery bypass graft(s) with other forms of angina pectoris (principal); I25.118 Atherosclerotic heart disease of native coronary artery with other forms of angina pectoris; I25.84 Coronary atherosclerosis due to calcified coronary lesion; I25.82 Chronic total occlusion of coronary artery; Z95.1 Presence of aortocoronary bypass graft; I12.9 Hypertensive chronic kidney disease with stage 1 through stage 4 chronic kidney disease, or unspecified chronic kidney disease; N18.9 Chronic kidney disease, unspecified; E78.5 Hyperlipidemia, unspecified; K80.20 Calculus of gallbladder without cholecystitis without obstruction; Z86.711 Personal history of pulmonary embolism; Z88.0 Allergy status to penicillin; Z79.82 Long term (current) use of aspirin; Z79.01 Long term (current) use of anticoagulants; Z79.899 Other long term (current) drug therapy
CPT/HCPCS: 76937; 93459; 99152; 99153; C1769; C1894; J1644; J2250; J3010; J7030; J7050; Q9967

== ENCOUNTER 2024-04-24 07:08 | Day surgery (SDC) | payer MEDICARE ==
[2024-04-24] VITALS (13 sets, daily range): BP systolic 136–154; BP diastolic 77–91
[~2024-04-24] VITALS: Ht 180.3 cm; Wt 77.0 kg
[~2024-04-24 07:08] MED LIST changes: +Amlodipine Bes2.5 MG PO; +MULTI-VITAMIN1 EAC2 PO; +NITR.4SL SL; +OMEP20ER PO
[2024-04-24] MEDS ORDERED: CeFAZolin Sodium 2,000 MG in NS 100 ML IV SCH (07:55)
[2024-04-24] MEDS ORDERED: Lactated Ringer's 1,000 ML IV SCH (07:55)
[2024-04-24] MEDS ORDERED: CeFAZolin Sodium 2,000 MG VIAL ONE (08:17)
[2024-04-24] MEDS ORDERED: Bupivacaine 0.5% HCl 5 MG/ML 30MLVIAL ONE (09:00)
[2024-04-24] MEDS ORDERED: FentaNYL Citrate 50 MCG/ML 2 ML Injection ONE ×2 (09:27→11:56)
[2024-04-24] MEDS ORDERED: Sugammadex Sodium 200 MG/2ML SDV (100 MG/ML) ONE (09:27)
[2024-04-24] MEDS ORDERED: propofoL 20 ML IV ONE (09:27)
[2024-04-24] MEDS ORDERED: Dexamethasone Sod Phos 10 MG/ML 1ML VIAL ONE (09:28)
[2024-04-24] MEDS ORDERED: Rocuronium Bromide 10 MG/ML 5ML Injection IV ONE ×2 (09:28→10:06)
[2024-04-24] MEDS ORDERED: Lidocaine HCl 2% 20 ML MDV ONE (09:28)
[2024-04-24] MEDS ORDERED: Ondansetron HCl 2 MG / ML 2ML Vial ONE (09:28)
[2024-04-24] MEDS ORDERED: Phenylephrine HCl 100 MCG/ML-NS 10MLSYR (1MG/10ML) ONE (09:39)
[2024-04-24] MEDS ORDERED: CeFAZolin Sodium 1000 mg Vial ONE (09:46)
[2024-04-24] MEDS ORDERED: HYDROcodone 5-APAP 325 TAB PO PRN (11:30)
[2024-04-24] MEDS ORDERED: HYDROmorphone HCl/Pf 1MG SYR ONE (12:22)
--- NOTE | 2024-04-24 14:07 | NUR ---
Patient up to Ambulate independently. Gait steady.W/ASSIT OF WALKER Discharge instructions reviewed with patient. Patient verbalizes understanding. Copy given to patient to take home. Discharged via wheelchair to private car for ride home.
== END 2024-04-24 14:00 | disposition home or self-care (01) ==
LOC: ORSCMMR 07:08 → ORD 08:30 → ORSCMMR 14:00
PROVIDERS: Surgery
PROC: 0FT44ZZ Resection of Gallbladder, Percutaneous Endoscopic Approach (ICD-10-PCS; principal; 2024-04-24 10:00)
PROC: BF031ZZ Plain Radiography of Gallbladder and Bile Ducts using Low Osmolar Contrast (ICD-10-PCS; principal; 2024-04-24 10:00)
DX: K80.10 Calculus of gallbladder with chronic cholecystitis without obstruction (principal); I12.9 Hypertensive chronic kidney disease with stage 1 through stage 4 chronic kidney disease, or unspecified chronic kidney disease; N18.9 Chronic kidney disease, unspecified; I25.10 Atherosclerotic heart disease of native coronary artery without angina pectoris; Z86.711 Personal history of pulmonary embolism; Z86.718 Personal history of other venous thrombosis and embolism; Z79.01 Long term (current) use of anticoagulants; Z79.899 Other long term (current) drug therapy
CPT/HCPCS: 74300; 88304; 93005; 93010; A9270; C1894; J0690; J1100; J1171; J2371; J2405; J2704; J3010; J7120

== ENCOUNTER 2024-05-05 08:13 | Emergency (ER) | payer MEDICARE ==
[~2024-05-05] VITALS: Ht 180.3 cm; Wt 79.4 kg
[2024-05-05 09:17] VITALS: BP 155/91
[2024-05-05 10:25] LABS: Source, Urine Foley catheter
[2024-05-05 10:27] LABS: Appearance, Urine Hazy (Clear); Bilirubin, Urine Neg (Neg); Blood, Urine 5+ (Neg); Color, Urine Yellow (P-Yellow); Glucose Qualitative, Urine Neg (Neg); Ketones, Urine Neg (Neg); Leukocyte Esterase, Urine 3+ (Neg); Nitrite, Urine Pos (Neg); Protein, Urine 2+ (Neg); Specific Gravity, Urine 1.025 (1.003-1.022); Urobilinogen, Urine NORM (Normal)
[2024-05-05 10:34] LABS: Bacteria Many /hpf; Squamous Epithelial Cells Few /hpf (Few); White Blood Cells, Urine 25-50 /hpf (0-5)
[2024-05-05 10:35] LABS: Red Blood Cells, Urine 50-100 /hpf (0-2); Renal Epithelial Rare /hpf (0-Rare)
[2024-05-05 10:36] LABS: Hyaline Casts 0-2 /lpf (0-2)
[2024-05-05] MEDS ORDERED: CEFP200 PO (10:55)
== END 2024-05-05 11:12 | disposition home or self-care (01) ==
LOC: ER 08:13
PROVIDERS: Physician Assistant
DX: N39.0 Urinary tract infection, site not specified (principal); I12.9 Hypertensive chronic kidney disease with stage 1 through stage 4 chronic kidney disease, or unspecified chronic kidney disease; N18.30 Chronic kidney disease, stage 3 unspecified; Z79.82 Long term (current) use of aspirin; Z79.899 Other long term (current) drug therapy; Z88.1 Allergy status to other antibiotic agents
CPT/HCPCS: 81001; 87077; 87086; 87186; 99283

== ENCOUNTER → 2024-05-29 | Outpatient (CLI) | payer MEDICARE ==
[~2024-05-29] MED LIST changes: +CEFP200 PO
== END | disposition home or self-care (01) ==
LOC: LAB 17:11 → LAB SHORT 17:11
DX: R35.0 Frequency of micturition (principal)
CPT/HCPCS: 87086

== ENCOUNTER → 2024-09-28 | Outpatient (CLI) | payer MEDICARE | END | disposition home or self-care (01) | LOC: LAB SHORT 12:04 → LAB 12:04 | DX: R82.998 Other abnormal findings in urine (principal) | CPT/HCPCS: 87086; 87106 ==

== ENCOUNTER 2024-12-06 11:00 | Emergency (ER) | payer MEDICARE ==
[~2024-12-06] VITALS: Ht 188 cm; Wt 79.4 kg
[2024-12-06 11:22] LABS: Calcium, Ionized (POC) 1.26 mmol/L (1.10-1.46); Chloride (POC) 104 mmol/L (98-108); Creatinine (POC) 1.8 mg/dL (0.8-1.3); Glucose (ISTAT POC) 133 mg/dL (70-99); Hematocrit (POC) 40.0 % (41.0-53.0); Hemoglobin (POC) 13.6 g/dL (13.5-17.5); Potassium (POC) 4.3 mmol/L (3.5-5.5); Sodium (POC) 140 mmol/L (135-148); Total CO2 (POC) 23 mmol/L (21-32)
[2024-12-06] MEDS ORDERED: NS 1,000 ML IV SCH (11:25)
[2024-12-06] MEDS ORDERED: Lidocaine 2% Jelly Uro-Jet UR ONE (11:25)
[2024-12-06 11:41] LABS: BASOPHILS ABSOLUTE AUTO 0.08 K/mm3 (0.00-0.23); BASOPHILS PERCENT AUTO 1 % (0-2); EOSINOPHILS ABSOLUTE AUTO 0.13 K/mm3 (0.00-0.68); EOSINOPHILS PERCENT AUTO 1 % (0-6); Hematocrit 40.5 % (37.0-53.0); Hemoglobin 13.7 g/dL (13.5-17.5); IMMATURE GRAN ABSOLUTE AUTO 0.04 K/mm3 (0.00-0.10); IMMATURE GRAN PERCENT AUTO 0 % (0-1); LYMPHOCYTES ABSOLUTE AUTO 2.30 K/mm3 (0.84-5.20); LYMPHOCYTES PERCENT AUTO 19 % (21-46); MONOCYTES ABSOLUTE AUTO 1.18 K/mm3 (0.16-1.47); MONOCYTES PERCENT AUTO 10 % (4-13); Mean Corpuscular HGB Conc 33.8 g/dL (31.5-36.5); Mean Corpuscular Volume 100 fL (80-100); NEUTROPHILS ABSOLUTE AUTO 8.58 K/mm3 (1.96-9.15); NEUTROPHILS PERCENT AUTO 70 % (41-73); NRBC ABSOLUTE 0.00 K/mm3 (0.00-0.02); NRBC Auto 0.0 /100 WBC (0.0-0.2); Platelet Count 207 K/mm3 (150-400); RDW Coefficient Variation 12.2 % (11.7-14.2); RDW Standard Deviation 44.2 fL (35.1-46.3)
[2024-12-06] MEDS ORDERED: FentaNYL Citrate 50 MCG/ML 2 ML Injection IV ONE (12:00)
[2024-12-06] MEDS ORDERED: Ondansetron HCl 2 MG / ML 2ML Vial IV ONE ×2 (12:00→12:15)
[2024-12-06 12:02] LABS: Alanine Aminotransfer (ALT/SGP 15.0 U/L (12-78); Albumin, Blood 3.7 g/dL (3.4-5.0); Albumin/Globulin Ratio 1.2 (0.8-1.8); Anion Gap 11.0 mmol/L (3-11); Aspartate Aminotrans (AST/SGOT 28.0 U/L (12-37); Bilirubin, Total 2.4 mg/dL (0.1-1.0); Blood Urea Nitrogen 32.0 mg/dL (8-24); CO2, Blood 23.0 mmol/L (21-32); Calcium, Blood 9.2 mg/dL (8.5-10.1); Chloride, Blood 108.0 mmol/L (98-108); Creatinine, Blood 1.53 mg/dL (0.60-1.20); Globulin, Blood 3.1 g/dL (2.2-4.0); Glucose, Blood 132.0 mg/dL (70-99); Potassium, Blood 4.2 mmol/L (3.5-5.5); Sodium, Blood 138.0 mmol/L (136-145); Total Protein, Blood 6.8 g/dL (6.4-8.2)
[2024-12-06 12:11] LABS: Prothrombin Time Results 11.4 Sec (9.7-11.5)
[2024-12-06] MEDS ORDERED: Ondansetron HCl 2 MG / ML 2ML Vial ONE (12:21)
[2024-12-06 12:45] VITALS: BP 104/52
[2024-12-06] MEDS ORDERED: HYDROmorphone HCl/Pf 1MG SYR IV ONE (13:00)
--- NOTE | 2024-12-06 13:44 | NUR ---
Spiritual Care | EOL Pt. is actively transitioning in ED5. Family is at bedside and welcomes my visit. Some of the family is known to this shop hand from the community. Prayers are made, scripture is read. Dr. Wyatt arrived to announce the Pts. passing. Pastoral care and comfort is given to the family. The family chooses [facility] for their home. Family verbalized gratitude for the spiritual care visit and requested this shop hand contact one of their pastors. A phone call was made to honor their request.
[2024-12-06] MEDS ORDERED: DOPamine 400 MG/Dextrose 250 ML Bag IV ONE (17:35)
== END 2024-12-06 14:36 ==
LOC: ER 11:00
PROVIDERS: Emergency Medicine
DX: I46.9 Cardiac arrest, cause unspecified (principal); I10 Essential (primary) hypertension
CPT/HCPCS: 71045; 80047; 80053; 82272; 83605; 84484; 85014; 85025; 85610; 85730; 86850; 86900; 86901; 87040; 92950; 93005; 93010; 93308; 93321; 96365; 96368; 96375; 96376; 99291-25; J0461; J1171; J1265; J2405; J3010; J7030; J7120